=== PATIENT | male | born 1975 | race Two or more races ===

== ENCOUNTER 2020-11-15 16:59 | Emergency (ER) | payer OTHER ==
[~2020-11-15] VITALS: Ht 180.3 cm; Wt 75.7 kg
[2020-11-15] MEDS ORDERED: PEPCID AC20 MG PO (22:05)
[2020-11-15] MEDS ORDERED: CIPRO500 MG PO (22:05)
== END 2020-11-15 22:22 | disposition home or self-care (01) ==
LOC: ER 16:59
DX: K52.9 Noninfective gastroenteritis and colitis, unspecified (principal)

== ENCOUNTER 2024-11-19 05:52 | Inpatient (IN) | payer OTHER ==
[~2024-11-19] VITALS: Ht 167.6 cm; Wt 184.6 kg
[~2024-11-19 05:52] MED LIST: CIPRO500 MG PO; PEPCID AC20 MG PO
--- NOTE | 2024-11-19 05:57 | NUR ---
PTE ALERTA Y ORIENTADO X3 EN AMBULANCIA QUIEN REFIERE DOLOR ABDOMINAL INTENSO QUE COMENZO CERCA DE LAS 0150 AM HOY. NIEGA VOMITOS Y DIARREAS. NOTIFICA NAUSEA LEVE AL MOMENTO DE TRIAGE. SE MIDEN SV Y SE UBICA.
[2024-11-19] MEDS ORDERED: 0.9 % SODIUM CHLORIDE 1,000 ML IV STA (06:11)
[2024-11-19] MEDS ORDERED: MORPHINE SULFATE 4 MG/ML VIAL IV STA (06:12)
[2024-11-19] MEDS ORDERED: KETOROLAC TROMETHAMINE 30 MG VIAL IV STA (06:12)
[2024-11-19] MEDS ORDERED: KETOROLAC TROMETHAMINE 30 MG VIAL ONE ×2 (06:13→14:47)
--- NOTE | 2024-11-19 07:37 | NUR ---
SE ORIENTA A PTE SOBRE TX MEDICO ORDENADO POR . SE REALIZA DENISE DE MUESTRAS DE LAB VIK ORDEN MEDICA Y BAJO MEDIDAS ASEPTICAS. VENOPUNCION PATENTE DARCI DE EDEMA Y ERITEMA BAJANDO IV FLUIDS POR REGULADOR. SE ADMINISTRA TWYLA DE MEDICAMENTOS VIK ORDEN MEDICA. SE NOTIFICA ESTUDIO ORDENADO.
[2024-11-19] MEDS ORDERED: PIPERACILLIN/TAZOBACTAM SODIUM 3.375 GM VIAL IV STA (07:41)
[2024-11-19 07:42] LABS: BASO % 0.2 % (0.1-1.2); EOS # 0.01 (0.04-0.54); EOS % 0.1 % (0.7-7.0); HEMATOCRIT 40.8 % (40.1-51.0); HEMOGLOBIN 13.9 g/dL (13.7-17.5); LYMPH # 1.16 (1.18-3.74); LYMPH % 6.1 % (19.3-53.1); MEAN CORPUSCULAR HEMOGLOBIN 30.1 pg (25.6-32.2); MONO # 1.19 (0.24-0.82); MONO % 6.2 % (4.7-12.5); NEUT # 16.63 (1.56-6.13); PLATELET COUNT 275 K/uL (163-369); RED BLOOD COUNT 4.62 M/uL (4.63-6.08); RED CELL DISTRIBUTION WIDTH 12.4 % (11.6-14.4)
[2024-11-19 08:01] LABS: INR 0.96; PARTIAL THROMBOPLASTIN TIME 25.5 SECONDS (22.0-34.0); PROTHROMBIN TIME 10.5 SECONDS (9.0-11.5)
[2024-11-19] MEDS ORDERED: PIPERACILLIN/TAZOBACTAM SODIUM 3.375 GM VIAL IV ONE ×3 (08:10→15:47)
[2024-11-19 08:12] LABS: ALBUMIN 4.2 gm/dL (3.4-5.0); BILIRUBIN TOTAL 1.09 mg/dL (0.3-1.2); CALCIUM 9.3 mg/dL (8.5-10.1); CREATININE SERUM 1.09 mg/dL (0.70-1.30); GFR 72.2; POTASSIUM 4.39 mEq/L (3.5-5.1); TOTAL PROTEIN 8.2 gm/dL (6.4-8.2)
[2024-11-19 09:24] LABS: PH,URINE 6.5 (5.0-8.0); URINE APPEARANCE Clear; URINE BILIRRUBIN Negative (NEGATIVE); URINE BLOOD Negative; URINE COLOR Yellow; URINE GLUCOSE Negative (NEGATIVE); URINE KETONE 15 (NEGATIVE); URINE LEUKOCYTE Negative; URINE NITRATE Negative; URINE PROTEIN Negative (NEGATIVE); URINE UROBILINOGEN 0.2 E.U./dl
[2024-11-19 09:28] LABS: URINE WBC 3.7 uL (0.0-23.2)
[2024-11-19 09:36] LABS: URINE BACTERIA 3.6 uL (0.0-1933); URINE EPITHELIAL CELLS 0.6 uL (0.0-38.8); URINE RBC 1.9 uL (0.0-20.8)
[2024-11-19 11:44] LABS: COVID-19 AG NEGATIVE (NEGATIVE); INFLUENZA A AG NEGATIVE (NEGATIVE); INFLUENZA B AG NEGATIVE (NEGATIVE)
[2024-11-19] MEDS ORDERED: RINGERS SOLUTION,LACTATED 1,000 ML IV SCH (14:45)
[2024-11-19] MEDS ORDERED: MORPHINE SULFATE 4 MG/ML VIAL IV PRN (14:45)
[2024-11-19] MEDS ORDERED: KETOROLAC TROMETHAMINE 30 MG VIAL IV ONE (14:45)
[2024-11-19 15:28] VITALS: BP 118/67
[2024-11-19] MEDS ORDERED: METOCLOPRAMIDE HCL 5 MG/ML VIAL ONE (15:46)
[2024-11-19] MEDS ORDERED: ACETAMINOPHEN 500 MG GEL..CAP PO ONE (15:54)
[2024-11-19] MEDS ORDERED: METOCLOPRAMIDE HCL 5 MG/ML VIAL IV SCH (17:00)
[2024-11-19 17:18] VITALS: BP 108/70; O2SAT 94
[2024-11-19] MEDS ORDERED: MORPHINE SULFATE 4 MG/ML CARTRIDGE IV PRN (19:30)
[2024-11-19] MEDS ORDERED: FAMOTIDINE/PF 20 MG/2 ML VIAL IV SCH (21:00)
[2024-11-20 01:16] VITALS: BP 116/77; O2SAT 97
[2024-11-20 06:16] LABS: BASO % 0.3 % (0.1-1.2); HEMATOCRIT 37.9 % (40.1-51.0); LYMPH # 0.58 (1.18-3.74); LYMPH % 8.8 % (19.3-53.1); MEAN CORPUSCULAR HEMOGLOBIN 30.6 pg (25.6-32.2); MONO # 0.34 (0.24-0.82); MONO % 5.2 % (4.7-12.5); NEUT # 5.66 (1.56-6.13); NEUT % 85.7 % (34.0-71.1); PLATELET COUNT 233 K/uL (163-369); RED BLOOD COUNT 4.25 M/uL (4.63-6.08); RED CELL DISTRIBUTION WIDTH 13.2 % (11.6-14.4)
[2024-11-20 06:54] LABS: ALBUMIN 3.3 gm/dL (3.4-5.0); CALCIUM 8.9 mg/dL (8.5-10.1); CREATININE SERUM 1.12 mg/dL (0.70-1.30); GFR 69.98; MAGNESIUM 1.8 mg/dL (1.8-2.4); POTASSIUM 3.91 mEq/L (3.5-5.1)
[2024-11-20 07:48] LABS: PHOSPHOROUS 1.9 mg/dL (2.5-4.9)
[2024-11-20 08:00] VITALS: BP 100/65; O2SAT 95
[2024-11-20 17:15] VITALS: BP 108/73; O2SAT 93
[2024-11-20] MEDS ORDERED: PIPERACILLIN/TAZOBACTAM SODIUM 4.5 GM in 0.9 % SODIUM CHLORIDE 100 ML IV SCH (18:00)
[2024-11-21] VITALS: BP 108/73; O2SAT 90
[2024-11-21 08:00] VITALS: BP 119/74; O2SAT 98
[2024-11-21 21:29] VITALS: BP 110/71; O2SAT 96
[2024-11-21 21:49] LABS: BASO % 0.5 % (0.1-1.2); EOS # 0.04 (0.04-0.54); EOS % 0.2 % (0.7-7.0); HEMATOCRIT 40.2 % (40.1-51.0); HEMOGLOBIN 13.8 g/dL (13.7-17.5); LYMPH # 0.94 (1.18-3.74); LYMPH % 5.5 % (19.3-53.1); MONO # 0.71 (0.24-0.82); MONO % 4.2 % (4.7-12.5); NEUT # 15.13 (1.56-6.13); NEUT % 88.7 % (34.0-71.1); PLATELET COUNT 240 K/uL (163-369); RED BLOOD COUNT 4.45 M/uL (4.63-6.08); RED CELL DISTRIBUTION WIDTH 13.5 % (11.6-14.4)
[2024-11-21 22:57] LABS: ERYTHROCYTE SEDIMENTATION RATE > 130 mm/hr (0-15)
[2024-11-22 01:18] VITALS: BP 110/75; O2SAT 97
[2024-11-22 08:42] VITALS: BP 117/74; O2SAT 95
[2024-11-22] MEDS ORDERED: BUPIVACAINE HCL/MPF 0.5% 30ML VIAL ONE (14:53)
[2024-11-22] MEDS ORDERED: LIDOCAINE HCL 1%/EPINEPHRINE 20ML VIAL IJ ONE (14:53)
[2024-11-22 16:00] VITALS: BP 114/75; O2SAT 95
[2024-11-22] MEDS ORDERED: OxyCODONE HCL 5 MG TABLET (ROXICODONE) PO PRN (16:30)
[2024-11-22] MEDS ORDERED: RINGERS SOLUTION,LACTATED 1,000 ML IV SCH (16:30)
[2024-11-22] MEDS ORDERED: MORPHINE SULFATE 4 MG/ML CARTRIDGE IV PRN (16:30)
[2024-11-22] MEDS ORDERED: SUGAMMADEX SODIUM 200 MG/2 ML VIAL IV ONE (16:30)
[2024-11-22] MEDS ORDERED: ONDANSETRON HCL 2 MG/ML VIAL IV PRN (16:30)
[2024-11-22] MEDS ORDERED: MORPHINE SULFATE 4 MG/ML VIAL IV ONE ×2 (16:35→17:05)
[2024-11-22] MEDS ORDERED: METOCLOPRAMIDE HCL 5 MG/ML VIAL ONE (16:57)
[2024-11-22] MEDS ORDERED: SIMETHICONE 125 MG CAPSULE PO SCH (17:00)
[2024-11-22] MEDS ORDERED: GABAPENTIN 300 MG CAPSULE PO SCH (17:00)
[2024-11-22] MEDS ORDERED: CELECOXIB 200 MG CAPSULE PO SCH (17:00)
[2024-11-22] MEDS ORDERED: METOCLOPRAMIDE HCL 5 MG/ML VIAL IV SCH (17:00)
[2024-11-22] MEDS ORDERED: HYOSCYAMINE SULFATE 0.125 MG TAB.SUBL SL SCH (17:00)
[2024-11-22] MEDS ORDERED: POLYETHYLENE GLYCOL 3350 17 GM BLIST.PACK PO SCH (17:00)
[2024-11-22 18:20] LABS: BASO % 0.3 % (0.1-1.2); EOS # 0.11 (0.04-0.54); EOS % 0.9 % (0.7-7.0); HEMATOCRIT 33.9 % (40.1-51.0); HEMOGLOBIN 11.5 g/dL (13.7-17.5); LYMPH # 0.57 (1.18-3.74); LYMPH % 4.6 % (19.3-53.1); MEAN CORPUSCULAR HEMOGLOBIN 30.2 pg (25.6-32.2); MONO # 0.83 (0.24-0.82); MONO % 6.7 % (4.7-12.5); NEUT # 10.68 (1.56-6.13); NEUT % 86.9 % (34.0-71.1); PLATELET COUNT 246 K/uL (163-369); RED BLOOD COUNT 3.81 M/uL (4.63-6.08); RED CELL DISTRIBUTION WIDTH 13.7 % (11.6-14.4)
[2024-11-22] MEDS ORDERED: ACETAMINOPHEN 500 MG GEL..CAP PO SCH (20:00)
[2024-11-22] MEDS ORDERED: FAMOTIDINE/PF 20 MG/2 ML VIAL IV PUSH SCH (21:00)
[2024-11-23 01:18] VITALS: BP 110/71; O2SAT 97
[2024-11-23 07:34] LABS: CALCIUM 8.1 mg/dL (8.5-10.1); CREATININE SERUM 0.78 mg/dL (0.70-1.30); GFR 106.23; MAGNESIUM 1.9 mg/dL (1.8-2.4); PHOSPHOROUS 2.6 mg/dL (2.5-4.9); POTASSIUM 3.48 mEq/L (3.5-5.1)
[2024-11-23 08:11] LABS: BASO % 0.3 % (0.1-1.2); EOS # 0.08 (0.04-0.54); EOS % 0.5 % (0.7-7.0); HEMATOCRIT 35.2 % (40.1-51.0); HEMOGLOBIN 11.9 g/dL (13.7-17.5); LYMPH % 6.5 % (19.3-53.1); MONO % 10.4 % (4.7-12.5); NEUT # 12.57 (1.56-6.13); NEUT % 81.4 % (34.0-71.1); PLATELET COUNT 274 K/uL (163-369); RED BLOOD COUNT 3.97 M/uL (4.63-6.08)
[2024-11-23 08:25] VITALS: BP 108/77; O2SAT 94
[2024-11-23] MEDS ORDERED: LACTULOSE 20 G/30 ML BLIST.PACK PO SCH (09:00)
[2024-11-23 16:00] VITALS: BP 116/79; O2SAT 98
[2024-11-23] MEDS ORDERED: ENOXAPARIN SODIUM 40 MG/0.4 ML SYRINGE SUBCUTANEO SCH (17:00)
[2024-11-24 00:31] VITALS: BP 118/83; O2SAT 99
[2024-11-24 06:18] LABS: BASO % 0.5 % (0.1-1.2); EOS # 0.43 (0.04-0.54); EOS % 2.8 % (0.7-7.0); HEMATOCRIT 32.6 % (40.1-51.0); HEMOGLOBIN 11.2 g/dL (13.7-17.5); LYMPH # 1.58 (1.18-3.74); LYMPH % 10.2 % (19.3-53.1); MEAN CORPUSCULAR HEMOGLOBIN 30.5 pg (25.6-32.2); MONO # 1.64 (0.24-0.82); MONO % 10.6 % (4.7-12.5); NEUT # 11.24 (1.56-6.13); NEUT % 72.4 % (34.0-71.1); RED BLOOD COUNT 3.67 M/uL (4.63-6.08); RED CELL DISTRIBUTION WIDTH 14.3 % (11.6-14.4)
[2024-11-24 06:57] LABS: ALBUMIN 2.1 gm/dL (3.4-5.0); BILIRUBIN TOTAL 1.2 mg/dL (0.3-1.2); BILIRUBIN,CONJUGATED 0.27 mg/dL (0.0-0.2); BILIRUBIN,UNCONJUGATED 0.93 mg/dL (0.0-0.6); CALCIUM 8.4 mg/dL (8.5-10.1); CREATININE SERUM 0.85 mg/dL (0.70-1.30); GFR 96.2; POTASSIUM 3.65 mEq/L (3.5-5.1); TOTAL PROTEIN 5.5 gm/dL (6.4-8.2)
[2024-11-24 07:55] LABS: PLATELET COUNT 298 K/uL (163-369)
[2024-11-24 08:57] VITALS: BP 112/78; O2SAT 94
[2024-11-24] MEDS ORDERED: ENOXAPARIN SODIUM 40 MG/0.4 ML SYRINGE SUBCUTANEO SCH (09:00)
[2024-11-24 16:00] VITALS: BP 103/69; O2SAT 95
[2024-11-25] VITALS: BP 109/75; O2SAT 95
[2024-11-25 08:00] VITALS: BP 102/66; O2SAT 95
[2024-11-25] MEDS ORDERED: AUGMENTIN XR 11 EACH PO (12:05)
[2024-11-25] MEDS ORDERED: CELEBREX200MG PO (12:06)
[2024-11-25] MEDS ORDERED: INTESTINEX680 M1 PO (12:06)
== END 2024-11-25 17:37 | disposition home or self-care (01) | DRG 399 ==
LOC: ER 05:52 → SURH 15:03
PROVIDERS: Emergency Medicine; Surgery; ADMIT Colon & Rectal Surgery; ATTEND Colon & Rectal Surgery
PROC: BW21ZZZ Computerized Tomography (CT Scan) of Abdomen and Pelvis (ICD-10-PCS; 2024-11-22)
PROC: 0DTJ4ZZ Resection of Appendix, Percutaneous Endoscopic Approach (ICD-10-PCS; principal; 2024-11-22 13:00)
DX: K35.80 Unspecified acute appendicitis (principal)